=== PATIENT | female | born 1995 | race Caucasian/White ===

== ENCOUNTER 2021-02-12 16:47 | Observation (INO) | payer BC, OTHER ==
[~2021-02-12] VITALS: Ht 180.3 cm; Wt 114.3 kg
[2021-02-12 19:27] LABS: HEMOGLOBIN 11.4 gm/dl (12.3-15.3); RED BLOOD COUNT 4.13 M/UL (4.00-5.10); WHITE BLOOD COUNT 8.2 K/UL (4.5-11.0)
[2021-02-12 19:54] LABS: BUN/CREATININE RATIO 7 (0-10)
[2021-02-12] MEDS ORDERED: LABETALOL HCL200 MG PO (19:56)
[2021-02-12] MEDS ORDERED: VITAMIN C500 M4 PO (19:57)
[2021-02-12] MEDS ORDERED: PRENATAL VITAM1 EAC3 PO (19:57)
== END 2021-02-13 13:07 | disposition home or self-care (01) ==
LOC: GENOP 16:47 → OB 20:03
PROVIDERS: ADMIT Obstetrics & Gynecology
DX: O13.3 Gestational [pregnancy-induced] hypertension without significant proteinuria, third trimester (principal); O41.03X0 Oligohydramnios, third trimester, not applicable or unspecified; Z3A.35 35 weeks gestation of pregnancy; O99.213 Obesity complicating pregnancy, third trimester; E66.01 Morbid (severe) obesity due to excess calories; O99.333 Smoking (tobacco) complicating pregnancy, third trimester; F17.210 Nicotine dependence, cigarettes, uncomplicated
CPT/HCPCS: 36415; 59025; 80053; 81001; 82247; 82248; 82570; 83615; 84156; 84550; 85025; 85379; 85384; 85610; 85730; 96360; 96361; 96372; G0378; J0702

== ENCOUNTER 2021-02-14 16:01 | Outpatient (CLI) | payer BC, OTHER ==
[~2021-02-14 16:01] MED LIST: LABETALOL HCL200 MG PO; PRENATAL VITAM1 EAC3 PO; VITAMIN C500 M4 PO
== END 2021-02-15 08:31 | disposition home or self-care (01) ==
LOC: GENOP 16:01
DX: O36.0130 Maternal care for anti-D [Rh] antibodies, third trimester, not applicable or unspecified (principal); Z3A.35 35 weeks gestation of pregnancy
CPT/HCPCS: 96360; 96361; J7120

== ENCOUNTER 2021-02-17 16:23 | Inpatient (IN) | payer BC, OTHER ==
[~2021-02-17] VITALS: Ht 180.3 cm; Wt 113.4 kg
[2021-02-17 17:51] LABS: HEMOGLOBIN 12.3 gm/dl (12.3-15.3); RED BLOOD COUNT 4.4 M/UL (4.00-5.10)
[2021-02-17] MEDS ORDERED: VITAMIN C500 M4 PO (18:45)
[2021-02-17] MEDS ORDERED: PRENATAL VITAM1 EAC5 PO (18:45)
[2021-02-17] MEDS ORDERED: LABETALOL HCL200 MG PO (18:45)
[2021-02-18] MEDS ORDERED: PERCOCET 5/325 T1 EA PO (09:11)
[2021-02-18] MEDS ORDERED: FERREX 28 TABL1 EACH PO (09:11)
[2021-02-18] MEDS ORDERED: IBUPROFEN800 MG PO (09:11)
[2021-02-18] MEDS ORDERED: COLACE100 MG PO (09:11)
[2021-02-19 06:10] LABS: HEMOGLOBIN 10.7 gm/dl (12.3-15.3)
== END 2021-02-20 15:00 | disposition home or self-care (01) | DRG 787 ==
LOC: GENOP 16:23 → CDU 17:05 → OB 18:27
PROVIDERS: ADMIT Obstetrics & Gynecology
PROC: 4A1HXCZ Monitoring of Products of Conception, Cardiac Rate, External Approach (ICD-10-PCS; 2021-02-17)
PROC: 0U7C7ZZ Dilation of Cervix, Via Natural or Artificial Opening (ICD-10-PCS; 2021-02-18)
PROC: 10D00Z1 Extraction of Products of Conception, Low, Open Approach (ICD-10-PCS; principal; 2021-02-18 07:30)
DX: O13.4 Gestational [pregnancy-induced] hypertension without significant proteinuria, complicating childbirth (principal); O41.03X0 Oligohydramnios, third trimester, not applicable or unspecified; Z3A.36 36 weeks gestation of pregnancy; Z37.0 Single live birth; O76 Abnormality in fetal heart rate and rhythm complicating labor and delivery; Z20.822 Contact with and (suspected) exposure to COVID-19; Z83.3 Family history of diabetes mellitus; Z82.49 Family history of ischemic heart disease and other diseases of the circulatory system
CPT/HCPCS: 36415; 81001; 82800; 85014; 85018; 85025; 90715; 96360; 96361; C9113; J0690; J1885; J2001; J2274; J2405; J2590; J2765; J2795; J3010; J3105; J7120; U0002